=== PATIENT | male | born 1955 | race Hispanic/Latino ===

== ENCOUNTER 2018-02-15 08:02 | Day surgery (SDC) | payer MEDICAID ==
[~2018-02-15 08:02] MED LIST: NACL 0.9% 1000 ML 1,000 ML IV SCH
[2018-02-15] MEDS ORDERED: XYLOCAINE 2% INFILTRATI ONE (08:46)
[2018-02-15] MEDS ORDERED: VERSED ONE (08:46)
[2018-02-15] MEDS ORDERED: DIPRIVAN 10 MG/ML IV ONE (08:46)
--- NOTE | 2018-02-15 08:50 | Short Stay Summary ---
Short Stay Documentation Date of service: 02/15/18 Narrative H&P: 62 year old with chronic alcoholic liver disease, possibly cirrhosis, and history of small caliber varices at EGD years ago. For EGD with possible banding of varices. - History Principal diagnosis: esophageal varices H&P: obtained from office Past Medical History: arthritis, hypertension, liver disease (portal hypertension, possible cirrhosis), other (esophageal varices at EGD 2014, polyp at colonoscopy 2012) Past Surgical History: No surgical history Social history: smoking, other (alcohol use) - Allergies and Medications Current Medications: Allergies codeine Allergy (Verified 03/29/15 10:16) Itching codeine phosphate [From Tylenol-Codeine] Allergy (Verified 03/29/15 10:16) Itching Home Medications Medication Instructions Recorded Confirmed Last Taken Type ALPRAZolam [Xanax TAB] 0.25 mg PO BID PRN 07/24/15 07/24/15 07/23/15 History HYDROcodone/APAP 5-325 [[place] 1 each PO Q6HR PRN 07/24/15 07/24/15 07/23/15 History 5/325] ALPRAZolam [Xanax TAB] 0.25 mg PO DAILY #30 tablet 07/26/15 Unknown Rx Atenolol [Tenormin] 25 mg PO DAILY #30 tab 07/26/15 Unknown Rx Lactulose [Cephulac] 20 gm PO QDAY 30 Days ml 07/26/15 Unknown Rx Active Medications Sodium Chloride (Nacl 0.9% 1000 Ml) 1,000 mls @ 50 mls/hr IV DIRECT AGATA - Physical exam General appearance: no acute distress, well-nourished HEENT: PERRLA, EOMI Lungs: Clear to auscultation Heart: Regular rate, Normal S1, Normal S2 Neurological: Normal speech - Hospital course Hospital course: Uneventful EGD - Disposition Condition at discharge: Good Disposition: - TO HOME OR SELFCARE - Discharge Diagnoses (1) Alcoholic liver disease Status: Chronic (2) Portal hypertension Status: Chronic (3) Esophageal varices Status: Chronic Qualifiers: Esophageal varices bleeding: without bleeding (4) Portal hypertensive gastropathy Status: Chronic (5) Gastritis Status: Chronic Short Stay Discharge Plan Activity: other (no driving today) Diet: other (may resume usual diet) Additional Instructions: 1. Call for biopsy results in 2 weeks if we have not contacted you by then. 2. Recommend stopping all alcohol use. 3. Recommend smoking cessation. 4. You will be due for colonoscopy July of this year. Please contact our office to schedule. 5. Make sure your siblings and children know that colon polyps run in the family and that they should begin their colon screening at age 40 rather than age 45 or 50. Follow up with: PRIMARY CAREMD [Primary Care Provider] - 7 Days
--- NOTE | 2018-02-15 09:27 | Anesthesia Day of Surgery ---
Anesthesia Day of Surgery - Day of Surgery Patient Examined: Yes Patient H&P Reviewed: Yes Patient is NPO: Yes Beta Blockers: Yes
--- NOTE | 2018-02-15 09:29 | Anesthesia Consultation ---
Anesthesia Consult and Med Hx Date of service: 02/15/18 - Airway Anesthetic Teeth Evaluation: Good ROM Head & Neck: Adequate Mental/Hyoid Distance: Adequate Mallampati Class: Class III Intubation Access Assessment: Good - Pulmonary Exam CTA: Yes - Cardiac Exam Cardiac Exam: No Murmur - Pre-Operative Health Status ASA Pre-Surgery Classification: ASA3 Proposed Anesthetic Plan: MAC - Pulmonary Hx Smoking: Yes COPD: Yes - Cardiovascular System Hx Hypertension: Yes - Central Nervous System Hx Psychiatric Problems: Yes (dx of bipolar disorder in 1982) - Endocrine Hx Cirrhosis: Yes Hx Liver Disease: Yes (HEPATITIS C ; CIRRHOSIS) - Other Systems Hx Alcohol Use: Yes Hx Substance Use: Yes (alcohol and tobacco; hx of marijuana) Hx Cancer: No
--- NOTE | 2018-02-15 10:09 | Operative Report ---
Operative Report Operative Report: Date: 02/15/2018 Preprocedure diagnosis: Esophageal varices Postprocedure diagnosis: Minimal esophageal varices, congestive portal gastropathy, antral gastritis, bulbar duodenitis Procedure: Esophagogastroduodenoscopy with biopsy Medication: Monitored anesthesia care Complication: None evident Estimated blood loss: None Procedure: The indications, techniques, potential complications, and alternative methods of diagnosis and treatment, had been discussed with him in detail prior to the date of the exam, and were reviewed again with him on the morning of the exam. His questions were encouraged and answered and he granted consent for esophagogastroduodenoscopy with possible banding of esophageal varices. He was placed in the left lateral decubitus position and medicated by anesthesia services. The tip of a [employer] video panendoscope was passed without difficulty through the pharynx and into the esophagus. Trace esophageal varices which flattened upon air insufflation and without amcias red spots or other stigmata of bleeding, were noted in the distal esophagus. The instrument was advanced into the stomach and air was insufflated. The stomach distended well. The proximal stomach showed signs of congestive portal gastropathy but no bleeding. The antrum showed streaky erythema consistent with nonerosive gastritis. The pylorus was patent. There was erythema in the duodenal bulb without ulceration or erosion. The postbulbar duodenum appeared normal to below the level of the ampulla. Retroflexion in the stomach revealed no additional pathology involving the lesser curvature, fundus or cardia. No gastric varices were seen. The instrument was straightened and advanced back to the antrum. A single biopsy was obtained for rapid Helicobacter pylori testing. No bleeding was precipitated. The endoscope was then withdrawn, with careful repeat examination of the stomach, esophagogastric junction and esophagus. No additional pathology was found. The instrument was fully withdrawn. The procedure was very well tolerated. He was then monitored in the recovery area of the GI lab to ensure stability prior to his release. See the outpatient record for details regarding instructions to patient, medications and plans for follow-up. Endoscopic assessment: 1. Minimal esophageal varices, banding not indicated at this time. 2. Congestive portal gastropathy. 3. Nonerosive antral gastritis. 4. Nonerosive bulbar duodenitis. Jacob Cisse M.D. Dictated 02/15/2018 at 10:02 AM
[2018-02-15 10:23] VITALS: BP 138/99
== END 2018-02-15 08:03 | disposition home or self-care (01) ==
LOC: GIO 08:02
PROVIDERS: ATTEND Internal Medicine Gastroenterology
DX: K70.30 Alcoholic cirrhosis of liver without ascites (principal); I85.10 Secondary esophageal varices without bleeding; K31.89 Other diseases of stomach and duodenum; K29.60 Other gastritis without bleeding; K76.6 Portal hypertension; K29.80 Duodenitis without bleeding; I10 Essential (primary) hypertension; M19.90 Unspecified osteoarthritis, unspecified site; J44.9 Chronic obstructive pulmonary disease, unspecified; F17.210 Nicotine dependence, cigarettes, uncomplicated; F31.9 Bipolar disorder, unspecified; Z88.5 Allergy status to narcotic agent; Z86.19 Personal history of other infectious and parasitic diseases; Z98.890 Other specified postprocedural states
CPT/HCPCS: 43239; 86677; J2250; J2704; J7030

== ENCOUNTER 2019-05-03 10:03 | Day surgery (SDC) | payer MEDICAID ==
--- NOTE | 2019-05-03 11:19 | Anesthesia Consultation ---
Anesthesia Consult and Med Hx Date of service: 05/03/19 - Airway Anesthetic Teeth Evaluation: Poor ROM Head & Neck: Adequate Mental/Hyoid Distance: Adequate Mallampati Class: Class II Intubation Access Assessment: Probably Good - Pulmonary Exam CTA: Yes - Cardiac Exam Cardiac Exam: RRR - Pre-Operative Health Status ASA Pre-Surgery Classification: ASA3 Proposed Anesthetic Plan: MAC - Pulmonary Hx Smoking: Yes (1PPD) Hx Respiratory Symptoms: No COPD: Yes (albuterol prn; last use 1 month ago) Home Oxygen Therapy: No - Cardiovascular System Hx Hypertension: Yes Hx Heart Attack/AMI: No Hx Percutaneous Transluminal Coronary Angioplasty (PTCA): No Hx Cardia Arrhythmia: No - Central Nervous System Hx Seizures: No CVA: No Hx Psychiatric Problems: Yes (bipolar d/o) - Gastrointestinal Hx Gastroesophageal Reflux Disease: No - Endocrine Hx Renal Disease: No (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
--- NOTE | 2019-05-03 11:19 | Anesthesia Day of Surgery ---
Anesthesia Day of Surgery - Day of Surgery Patient Examined: Yes Patient H&P Reviewed: Yes Patient is NPO: Yes
[2019-05-03] MEDS ORDERED: NACL 0.9% 1000 ML 1,000 ML IV SCH (12:00)
[2019-05-03] MEDS ORDERED: XYLOCAINE MPF 2% ONE (12:30)
[2019-05-03] MEDS ORDERED: DIPRIVAN 10 MG/ML IV ONE ×2 (12:36)
--- NOTE | 2019-05-03 12:48 | Short Stay Summary ---
Short Stay Documentation Date of service: 05/03/19 - History H&P: obtained from office - Allergies and Medications Current Medications: Allergies codeine Allergy (Verified 03/29/15 10:16) Itching codeine phosphate [From Tylenol-Codeine] Allergy (Verified 03/29/15 10:16) Itching Home Medications Medication Instructions Recorded Confirmed Last Taken Type RX: ALPRAZolam [Xanax TAB] 0.25 mg PO BID PRN 07/24/15 05/03/19 02/14/18 21:00 History RX: Atenolol [Tenormin] 25 mg PO DAILY #30 tab 07/26/15 05/03/19 05/02/19 Rx RX: Amitriptyline [Elavil] 50 mg PO QHS 02/15/18 05/03/19 05/02/19 History RX: Diclofenac Sodium 75 mg PO DAILY 02/15/18 05/03/19 02/14/18 History RX: Gabapentin [Neurontin] 100 mg PO Q8HR 02/15/18 05/03/19 02/14/18 History RX: Mirtazapine [Remeron] 30 mg PO DAILY 02/15/18 05/03/19 05/02/19 History RX: Tizanidine HCl [Zanaflex 4mg 4 mg PO QHS 02/15/18 05/03/19 02/14/18 17:00 History CAP] RX: amLODIPine [Norvasc] 5 mg PO DAILY 02/15/18 05/03/19 05/02/19 History Active Medications Sodium Chloride (Nacl 0.9% 1000 Ml) 1,000 mls @ 50 mls/hr IV DIRECT AGATA Last Admin: 05/03/19 11:40 Dose: 50 mls/hr Documented by: - Brief post op/procedure progress note Date of procedure: 05/03/19 Procedure: see dictation Estimated blood loss: none Pathology: none Condition: stable - Disposition Condition at discharge: Good Disposition: DC-01 TO HOME OR SELFCARE - Discharge Diagnoses (1) Dysphagia Status: Acute (2) Cirrhosis with alcoholism Status: Acute (3) Esophageal varices Status: Chronic (4) Portal hypertensive gastropathy Status: Chronic Short Stay Discharge Plan Activity: other (no driving for 24 hours) Weight Bearing Status: Weight Bear as Tolerated Diet: regular Follow up with: GLADYS ENRIQUEZ MD [Primary Care Provider] - 7 Days
--- NOTE | 2019-05-03 12:52 | Operative Report ---
Operative Report Operative Report: Date of procedure: 05/03/2019 Procedure: Esophagogastroduodenoscopy Preprocedure diagnosis: Dysphagia. History of esophageal varices and cirrhosis. Post procedure diagnosis: Mild erosive esophagitis. Small esophageal varices, 0-1+ . Mild portal hypertension gastropathy. Endoscopist: Dr. Braun Anesthesia: Monitored anesthesia care per anesthesia department Medications: Propofol per anesthesia Estimated blood loss: 0 After careful discussion of the nature and purpose of the procedure as well as d etails the technique risks benefits and alternatives consent was obtained. The patient was placed in the left lateral decubitus position and medicated per anesthesia. The tip of the [employer] EQ 570 video scope was passed per orum under direct vision into the esophagus and advanced into the stomach and descending duodenum. The descending duodenum the duodenal bulb and pylorus were symmetrical and normal. The scope was withdrawn into the stomach and the stomach then gently insufflated with air. The antrum was normal. The stomach was further insufflated and the scope was then retroflexed and partially withdrawn. The cardia, fundus, and body of the stomach revealed mild congestive gastropathy. There were no discrete varices however.The scope was then withdrawn in the forward position. The esophagogastric junction was at 40 cm. There was mild irregularity of the Z line, erythema and a few shallow erosions in the distal esophagus. 0-1+ esophageal varices were noted which disappeared with insufflation of the esophagus with air. Banding was therefore not performed. No strictures were evident in the esophageal body. The procedure was was well tolerated and the patient was observed in recovery. Impressions: Mild distal esophagitis secondary to acid reflux by appearance. Small varices of the [id number]+. Mild portal hypertension gastropathy. Plan: Begin ranitidine 150 mg twice a day. Office follow-up in 3 months. Electronically signed: Vu Braun MD
[2019-05-03 13:32] VITALS: BP 137/62
== END 2019-05-03 10:04 | disposition home or self-care (01) ==
LOC: GIO 10:03
PROVIDERS: ATTEND Internal Medicine Gastroenterology
DX: I85.00 Esophageal varices without bleeding (principal); K21.0 Gastro-esophageal reflux disease with esophagitis; K76.6 Portal hypertension; K31.89 Other diseases of stomach and duodenum; D69.6 Thrombocytopenia, unspecified; I10 Essential (primary) hypertension; J44.9 Chronic obstructive pulmonary disease, unspecified; M19.90 Unspecified osteoarthritis, unspecified site; R13.10 Dysphagia, unspecified; K70.31 Alcoholic cirrhosis of liver with ascites; F31.9 Bipolar disorder, unspecified; F17.210 Nicotine dependence, cigarettes, uncomplicated; Z88.5 Allergy status to narcotic agent; Z79.899 Other long term (current) drug therapy; Z96.653 Presence of artificial knee joint, bilateral; Z72.89 Other problems related to lifestyle; Z98.890 Other specified postprocedural states
CPT/HCPCS: 43235; J2704; J7030

== ENCOUNTER 2020-10-15 10:41 | Emergency (ER) | payer MEDICAID ==
--- NOTE | 2020-10-15 11:23 | Emergency Department Report ---
ED General Adult HPI - General Chief complaint: Weakness Stated complaint: WEAKNESS Time Seen by Provider: 10/15/20 10:58 Source: patient, EMS Mode of arrival: Stretcher Limitations: Physical Limitation - History of Present Illness Initial comments: Patient presents to the emergency department the chief complaint of weakness. Patient states that his mother called the paramedics this morning because he cannot get off the floor. Patient states by the time EMS arrived he had gotten himself off of the floor. Patient does endorse being a daily drinker but states that his last drink was at 10 PM last night and he would normally not have had anything to drink by now. Patient denies chest pain, shortness breath, or abdominal pain. Patient denies facial droop, slurred speech, any neurological deficits. -: Sudden Severity scale (0 -10): 0 Consistency: now resolved Improves with: none Worsens with: none Associated Symptoms: denies other symptoms Treatments Prior to Arrival: none - Related Data Home Medications Medication Instructions Recorded Confirmed Last Taken ALPRAZolam [Xanax TAB] 0.25 mg PO BID PRN 07/24/15 05/03/19 02/14/18 21:00 Amitriptyline [Elavil] 50 mg PO QHS 02/15/18 05/03/19 05/02/19 Diclofenac Sodium 75 mg PO DAILY 02/15/18 05/03/19 02/14/18 Gabapentin 100 mg PO Q8HR 02/15/18 05/03/19 02/14/18 Mirtazapine [Remeron] 30 mg PO DAILY 02/15/18 05/03/19 05/02/19 Tizanidine HCl [Zanaflex 4mg CAP] 4 mg PO QHS 02/15/18 05/03/19 02/14/18 17:00 amLODIPine 5 mg PO DAILY 02/15/18 05/03/19 05/02/19 Previous Rx's Medication Instructions Recorded Last Taken Type atenoloL [Tenormin] 25 mg PO DAILY #30 tab 07/26/15 05/02/19 Rx raNITIdine HCl [Zantac] 150 mg PO BID 30 Days #60 tablet 05/03/19 Unknown Rx Allergies Allergy/AdvReac Type Severity Reaction Status Date / Time codeine Allergy Itching Verified 10/15/20 11:07 codeine phosphate Allergy Itching Verified 10/15/20 11:07 [From Tylenol-Codeine] ED Review of Systems ROS: Stated complaint: WEAKNESS Other details as noted in HPI Constitutional: denies: chills, fever Eyes: denies: eye pain, eye discharge, vision change ENT: denies: ear pain, throat pain Respiratory: denies: cough, shortness of breath, wheezing Cardiovascular: denies: chest pain, palpitations Endocrine: no symptoms reported Gastrointestinal: denies: abdominal pain, nausea, diarrhea Genitourinary: denies: urgency, dysuria Musculoskeletal: denies: back pain, joint swelling, arthralgia Skin: denies: rash, lesions Neurological: weakness. 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 on recent outpatient labs) Hx Arthritis: Yes Hx Seizures: No Hx Psychiatric Treatment: No Hx COPD: Yes Hx HIV: No Additional medical history: ALCOHOL ABUSE - Surgical History Additional Surgical History: ARTHROSCOPIC ON BOTH KNEES - Social History Smoking Status: Current Every Day Smoker Substance Use Type: Alcohol - Medications Home Medications: Home Medications Medication Instructions Recorded Confirmed Last Taken Type ALPRAZolam [Xanax TAB] 0.25 mg PO BID PRN 07/24/15 05/03/19 02/14/18 21:00 History atenoloL [Tenormin] 25 mg PO DAILY #30 tab 07/26/15 05/03/19 05/02/19 Rx Amitriptyline [Elavil] 50 mg PO QHS 02/15/18 05/03/19 05/02/19 History Diclofenac Sodium 75 mg PO DAILY 02/15/18 05/03/19 02/14/18 History Gabapentin 100 mg PO Q8HR 02/15/18 05/03/19 02/14/18 History Mirtazapine [Remeron] 30 mg PO DAILY 02/15/18 05/03/19 05/02/19 History Tizanidine HCl [Zanaflex 4mg CAP] 4 mg PO QHS 02/15/18 05/03/19 02/14/18 17:00 History amLODIPine 5 mg PO DAILY 0605/03/19 05/02/19 History raNITIdine HCl [Zantac] 150 mg PO BID 30 Days #60 tablet 05/03/19 Unknown Rx ED Physical Exam - General Limitations: Physical Limitation General appearance: alert, in no apparent distress - Head Head exam: Present: atraumatic, normocephalic - Eye Eye exam: Present: normal appearance, PERRL, EOMI - ENT ENT exam: Present: mucous membranes dry - Neck Neck exam: Present: normal inspection - Respiratory Respiratory exam: Present: normal lung sounds bilaterally. Absent: respiratory distress - Cardiovascular Cardiovascular Exam: Present: regular rate, normal rhythm. Absent: systolic murmur, diastolic murmur, rubs, gallop - GI/Abdominal GI/Abdominal exam: Present: soft, normal bowel sounds. Absent: distended, tenderness - Rectal Rectal exam: Present: deferred - Extremities Exam Extremities exam: Present: normal inspection - Back Exam Back exam: Present: normal inspection - Neurological Exam Neurological exam: Present: alert, oriented X3, CN II-XII intact, other (Normal finger-nose, gcbi-[id number]-opma, rapid hand movement). Absent: motor sensory deficit - Psychiatric Psychiatric exam: Present: normal affect, normal mood - Skin Skin exam: Present: warm, dry, intact, normal color. Absent: rash ED Course Vital Signs 10/15/20 10/15/20 10/15/20 11:03 11:06 11:08 Temperature 97.8 F Pulse Rate 97 H 96 H Respiratory 20 20 Rate Blood Pressure 179/88 Blood Pressure [Left] O2 Sat by Pulse 99 Oximetry 10/15/20 10/15/20 12:09 13:16 Temperature Pulse Rate 90 89 Respiratory 20 18 Rate Blood Pressure Blood Pressure 182/101 190/101 [Left] O2 Sat by Pulse 97 99 Oximetry ED Medical Decision Making - Lab Data Result diagrams: 10/15/20 12:11 10/15/20 12:11 Lab Results 10/15/20 10/15/20 10/15/20 Range/Units 11:27 12:11 12:11 WBC 5.3 (4.5-11.0) K/mm3 RBC 3.96 (3.65-5.03) M/mm3 Hgb 14.4 (11.8-15.2) gm/dl Hct 41.2 (35.5-45.6) % MCV 104 H (84-94) fl MCH 37 H (28-32) pg MCHC 35 H (32-34) % RDW 12.9 L (13.2-15.2) % Plt Count 115 L (140-440) K/mm3 Lymph % (Auto) Manufacturing Leader Vance % (Auto) Manufacturing Leader Eos % (Auto) Manufacturing Leader Baso % (Auto) Manufacturing Leader Lymph # (Auto) Manufacturing Leader Vance # (Auto) Manufacturing Leader Eos # (Auto) Manufacturing Leader Baso # (Auto) Manufacturing Leader Seg Neutrophils % Manufacturing Leader Seg Neutrophils # Manufacturing Leader PT (12.2-14.9) Sec. INR (0.87-1.13) Sodium 136 L (137-145) mmol/L Potassium 4.0 (3.6-5.0) mmol/L Chloride 101.1 (98-107) mmol/L Carbon Dioxide 23 (22-30) mmol/L Anion Gap 16 mmol/L BUN 10 (9-20) mg/dL Creatinine 0.7 L (0.8-1.3) mg/dL Estimated GFR > 60 ml/min BUN/Creatinine Ratio 14 % Glucose 90 (75-100) mg/dL Calcium 8.9 (8.4-10.2) mg/dL Phosphorus (2.5-4.5) mg/dL Magnesium (1.7-2.3) mg/dL Total Bilirubin 1.20 (0.1-1.2) mg/dL AST 39 (5-40) units/L ALT 28 (7-56) units/L Alkaline Phosphatase 93 (35-129) units/L Total Creatine Kinase 172 H (55-170) units/L Troponin T < 0.010 (0.00-0.029) ng/mL Total Protein 6.7 (6.3-8.2) g/dL Albumin 4.1 (3.9-5) g/dL Albumin/Globulin Ratio 1.6 % Urine Color Yellow (Yellow) Urine Turbidity Clear (Clear) Urine pH 5.0 (5.0-7.0) Ur Specific [place] 1.005 (1.003-1.030) Urine Protein <15 mg/dl (Negative) mg/dL Urine Glucose (UA) Neg (Negative) mg/dL Urine Ketones Neg (Negative) mg/dL Urine Blood Sm (Negative) Urine Nitrite Neg (Negative) Urine Bilirubin Neg (Negative) Urine Urobilinogen < 2.0 (<2.0) mg/dL Ur Leukocyte Esterase Neg (Negative) Urine WBC (Auto) < 1.0 (0.0-6.0) /HPF Urine RBC (Auto) < 1.0 (0.0-6.0) /HPF Urine Mucus Few /HPF 10/15/20 10/15/20 10/15/20 Range/Units 12:11 12:11 12:11 WBC (4.5-11.0) K/mm3 RBC (3.65-5.03) M/mm3 Hgb (11.8-15.2) gm/dl Hct (35.5-45.6) % MCV (84-94) fl MCH (28-32) pg MCHC (32-34) % RDW (13.2-15.2) % Plt Count (140-440) K/mm3 Lymph % (Auto) Vance % (Auto) Eos % (Auto) Baso % (Auto) Lymph # (Auto) Vance # (Auto) Eos # (Auto) Baso # (Auto) Seg Neutrophils % Seg Neutrophils # PT 13.8 (12.2-14.9) Sec. INR 1.08 (0.87-1.13) Sodium (137-145) mmol/L Potassium (3.6-5.0) mmol/L Chloride (98-107) mmol/L Carbon Dioxide (22-30) mmol/L Anion Gap mmol/L BUN (9-20) mg/dL Creatinine (0.8-1.3) mg/dL Estimated GFR ml/min BUN/Creatinine Ratio % Glucose (75-100) mg/dL Calcium (8.4-10.2) mg/dL Phosphorus 2.90 (2.5-4.5) mg/dL Magnesium 1.80 (1.7-2.3) mg/dL Total Bilirubin (0.1-1.2) mg/dL AST (5-40) units/L ALT (7-56) units/L Alkaline Phosphatase (35-129) units/L Total Creatine Kinase (55-170) units/L Troponin T < 0.010 (0.00-0.029) ng/mL Total Protein (6.3-8.2) g/dL Albumin (3.9-5) g/dL Albumin/Globulin Ratio % Urine Color (Yellow) Urine Turbidity (Clear) Urine pH (5.0-7.0) Ur Specific [place] (1.003-1.030) Urine Protein (Negative) mg/dL Urine Glucose (UA) (Negative) mg/dL Urine Ketones (Negative) mg/dL Urine Blood (Negative) Urine Nitrite (Negative) Urine Bilirubin (Negative) Urine Urobilinogen (<2.0) mg/dL Ur Leukocyte Esterase (Negative) Urine WBC (Auto) (0.0-6.0) /HPF Urine RBC (Auto) (0.0-6.0) /HPF Urine Mucus /HPF 10/15/20 Range/Units 12:11 WBC (4.5-11.0) K/mm3 RBC (3.65-5.03) M/mm3 Hgb (11.8-15.2) gm/dl Hct (35.5-45.6) % MCV (84-94) fl MCH (28-32) pg MCHC (32-34) % RDW (13.2-15.2) % Plt Count (140-440) K/mm3 Lymph % (Auto) Vance % (Auto) Eos % (Auto) Baso % (Auto) Lymph # (Auto) Vance # (Auto) Eos # (Auto) Baso # (Auto) Seg Neutrophils % Seg Neutrophils # PT (12.2-14.9) Sec. INR (0.87-1.13) Sodium (137-145) mmol/L Potassium (3.6-5.0) mmol/L Chloride (98-107) mmol/L Carbon Dioxide (22-30) mmol/L Anion Gap mmol/L BUN (9-20) mg/dL Creatinine (0.8-1.3) mg/dL Estimated GFR ml/min BUN/Creatinine Ratio % Glucose (75-100) mg/dL Calcium (8.4-10.2) mg/dL Phosphorus (2.5-4.5) mg/dL Magnesium (1.7-2.3) mg/dL Total Bilirubin (0.1-1.2) mg/dL AST (5-40) units/L ALT (7-56) units/L Alkaline Phosphatase (35-129) units/L Total Creatine Kinase 173 H (55-170) units/L Troponin T (0.00-0.029) ng/mL Total Protein (6.3-8.2) g/dL Albumin (3.9-5) g/dL Albumin/Globulin Ratio % Urine Color (Yellow) Urine Turbidity (Clear) Urine pH (5.0-7.0) Ur Specific [place] (1.003-1.030) Urine Protein (Negative) mg/dL Urine Glucose (UA) (Negative) mg/dL Urine Ketones (Negative) mg/dL Urine Blood (Negative) Urine Nitrite (Negative) Urine Bilirubin (Negative) Urine Urobilinogen (<2.0) mg/dL Ur Leukocyte Esterase (Negative) Urine WBC (Auto) (0.0-6.0) /HPF Urine RBC (Auto) (0.0-6.0) /HPF Urine Mucus /HPF - EKG Data -: EKG Interpreted by In EKG shows normal: sinus rhythm Rate: normal - Radiology Data Radiology results: report reviewed - Medical Decision Making Discussed results with patient Critical care attestation.: If time is entered above; I have spent that time in minutes in the direct care of this critically ill patient, excluding procedure time. ED Disposition Clinical Impression: Fatigue Disposition: DC-01 TO HOME OR SELFCARE Is pt being admited?: No Does the pt Need Aspirin: No Condition: Stable Instructions: Fatigue Additional Instructions: return if worse Referrals: PRIMARY MD ALBERTINA [Referring] - 3-5 Days [facility] [Provider Group] - 3-5 Days [facility] [Provider Group] - 3-5 Days SULAIMAN ODONNELL MD [Staff Physician] - 3-5 Days
[2020-10-15 11:46] LABS: Bilirubin,Urine NEG (Negative); Blood,Urine SM (Negative); Color,Urine Yellow (Yellow); Mucus,Urine FEW /HPF; Protein,Urine <15 mg/dL mg/dL (Negative); RBC,Urine < 1.0 /HPF (0.0-6.0); Urobilinogen,Urine < 2.0 mg/dL (<2.0); WBC,Urine < 1.0 /HPF (0.0-6.0)
--- NOTE | 2020-10-15 11:53 | Cat Scan Report ---
NONENHANCED CT SCAN OF THE HEAD: INDICATION / CLINICAL INFORMATION: 65 years Male; Weakness. TECHNIQUE: Routine CT head without contrast. All CT scans at this location are performed using CT dos e reduction for ALARA by means of automated exposure control. COMPARISON: None. FINDINGS: BRAIN / INTRACRANIAL CONTENTS: No acute hemorrhage, mass effect, midline shift, hydrocephalus, or acu te, large territorial infarct. No chronic infarct or encephalomalacia. Prominent cortical sulci sugge sting moderate cortical involution CRANIOCERVICAL JUNCTION: No significant abnormality. ORBITS: No significant abnormality of visualized orbits. SINUSES / MASTOIDS: No significant abnormality of the visualized paranasal sinuses or mastoid air guille ls. ADDITIONAL FINDINGS: None. IMPRESSION: No acute focal parenchymal lesion Signer Name: Maryann Rai MD Signed: 10/15/2020 11:48 AM Workstation Name: [id number]
[2020-10-15] MEDS ORDERED: SODIUM CHLORIDE 0.9% 1000 ML 1,000 ML ONE (12:00)
[2020-10-15] MEDS ORDERED: SODIUM CHLORIDE 0.9% 1000 ML 1,000 ML IV ONE ×2 (12:01→13:00)
--- NOTE | 2020-10-15 12:17 | XRay Report ---
CHEST 1 VIEW INDICATION / CLINICAL INFORMATION: Weakness. COMPARISON: None available. FINDINGS: SUPPORT DEVICES: None. HEART / MEDIASTINUM: No significant abnormality. LUNGS / PLEURA: No significant pulmonary or pleural abnormality. No pneumothorax. ADDITIONAL FINDINGS: Elevation of the left hemidiaphragm IMPRESSION: Elevation of the left hemidiaphragm. No definite acute pulmonary or pleural abnormality Signer Name: Betito Garcia MD FACTato Signed: 10/15/2020 12:13 PM Workstation Name: [id number]
[2020-10-15 12:44] LABS: Hematocrit 41.2 % (35.5-45.6); Hemoglobin 14.4 gm/dl (11.8-15.2); Mean Corpuscular HGB Conc 35 % (32-34); Mean Corpuscular Volume 104 fl (84-94); Platelet Count 115 K/mm3 (140-440); Red Blood Count 3.96 M/mm3 (3.65-5.03); Red Cell Distribution Width 12.9 % (13.2-15.2)
[2020-10-15 12:47] LABS: INR 1.08 (0.87-1.13)
[2020-10-15 12:58] LABS: Alanine Aminotransferase 28 units/L (7-56); Albumin 4.1 g/dL (3.9-5); BUN/Creatinine Ratio 14; Blood Urea Nitrogen 10 mg/dL (9-20); Calcium 8.9 mg/dL (8.4-10.2); Hemolysis Index 7
[2020-10-15 13:17] VITALS: BP 190/101
== END 2020-10-15 14:49 | disposition home or self-care (01) ==
LOC: ED 10:41
DX: R53.83 Other fatigue (principal); I10 Essential (primary) hypertension; M19.90 Unspecified osteoarthritis, unspecified site; J44.9 Chronic obstructive pulmonary disease, unspecified; F17.200 Nicotine dependence, unspecified, uncomplicated; Z79.899 Other long term (current) drug therapy; Z88.6 Allergy status to analgesic agent; Z88.8 Allergy status to other drugs, medicaments and biological substances
CPT/HCPCS: 36415; 70450; 71045; 80053; 81001; 82550; 83735; 84100; 84484; 85025; 85610; 87086; 93005; 96360; 96361; 99285; J7030